=== PATIENT | male | born 1930 | race Caucasian/White ===

== ENCOUNTER 2016-11-17 22:48 | Emergency (ER) | payer MEDICARE, OTHER ==
[~2016-11-17] VITALS: Ht 188 cm; Wt 98.0 kg
[2016-11-17 22:48] VITALS: BP 151/72; PULSE 60; RESP 18; TEMP 97.8; O2SAT 96
[~2016-11-17 22:48] MED LIST: ALLO300T2 PO; ASPI81TA82 PO; AVOD0.5C PO; CO Q100C9 PO; DOCU1CAP39 PO; DONE5TAB14 PO; FLAX10008 PO; LISI10 PO; PROT40TA PO; RIVA20 PO; VITA100018 PO
--- NOTE | 2016-11-17 23:12 | PD ---
HPI Chief Complaint: Complaint Time Seen by Provider: 23:01 Travel History International Travel<30 days: No Contact w/Intl Traveler<30days: No Traveled to known affect area: No History of Present Illness HPI 86-year-old male presents to the emergency department by EMS transport from [facility]. Patient had a urinary catheter inserted this afternoon but continued to have pain after urinary catheter insertion with suprapubic distention. Patient presented with the urinary catheter identified to be expelled outside of the urethra. Patient has had a urinary catheter in place with frequent reinsertion 3 years due to BPH. Patient denies fever chills nausea vomiting chest pain shortness of breath back pain and now after urinary catheter insertion in the emergency department denies any abdominal pain. Patient reports pain was over the bladder location. Patient is in hospice. Patient has history of normal pressure hydrocephalus and is status post [employer] shunt placement as well as atrial fibrillation and is prescribed Xarelto. PFSH Past Medical History Narrative Medical Rectal bleeding normal pressure hydrocephalus atrial fibrillation UTI DPH GERD kidney stone CVA hypertension dyslipidemia dementia COPD gout; [employer] shunt; no tobacco use; nursing notes reviewed Cancer: No Cardiovascular Problems: No Diabetes: No Endocrine: No Genitourinary: Yes (URINARY INCONTINENCE) Hepatitis: No Hiatal Hernia: No Immune Disorder: No Musculoskeletal: No Neurologic: Yes (S/P STROKE, HYDRCEPHALUS, CONFUSION) Psychiatric: No Respiratory: No Thyroid Disease: No Past Surgical History AICD: No Genitourinary Surgery: Yes (LITHOTRIPSY) Joint Replacement: No Pacemaker: No Social History Tobacco Use: No Substance Use: No Allergies-Medications (Allergen,Severity, Reaction): Coded Allergies: No Known Allergies (Unverified , 09/06/14) Reported Meds & Prescriptions Reported Meds & Active Scripts Active Protonix (Pantoprazole Sodium) 40 Mg Tabdr 40 Mg PO DAILY Prinivil 10 mg (Lisinopril) 10 Mg Tab 10 Mg PO DAILY Colace 100 Mg Cap (Docusate Sodium) 100 Mg Cap 100 Mg PO BID Reported Xarelto 20 Mg Tab (Rivaroxaban) 20 Mg Tab 20 Mg PO DAILY Donepezil 5 Mg Tab 5 Mg PO HS Vitamin D (Cholecalciferol) 1,000 Unit Tab 1,000 Unit PO Flaxseed Oil (Flaxseed (Linseed)) 1,000 Mg Cap 1 Cap PO DAILY Co Q 10 (Coenzyme Q10) 100 Mg Cap 100 Mg PO Avodart (Dutasteride) 0.5 Mg Cap 0.5 Mg PO DAILY Aspir-81 (Aspirin) 81 Mg Tab 81 Mg PO DAILY Allopurinol 300 Mg Tab 300 Mg PO DAILY Review of Systems Except as stated in HPI: all other systems reviewed are Neg General / Constitutional: No: Fever, Chills HENT: No: Congestion Cardiovascular: No: Chest Pain or Discomfort Respiratory: No: Shortness of Breath Gastrointestinal: Positive: Abdominal Pain (suprpubic pain), No: Vomiting Genitourinary: Positive: Decreased Urinary Output, No: Dysuria Musculoskeletal: No: Pain Skin: No Rash Neurologic: No: Weakness Psychiatric: No: Anxiety Hematologic/Lymphatic: Positive: Easy Bruising (xarelto) Physical Exam Narrative GENERAL: SKIN: Warm and dry. HEAD: Normocephalic. EYES: No scleral icterus. No injection or drainage. NECK: Supple, trachea midline. No JVD or lymphadenopathy. CARDIOVASCULAR: Regular rate and rhythm without murmurs, gallops, or rubs. RESPIRATORY: Breath sounds equal bilaterally. No accessory muscle use. GASTROINTESTINAL: Abdomen soft, mild residual suprapubic tenderness to palpation after urinary catheter placed to decompress bladder, nondistended. No guarding or rebound. : Uncircumcised male with urinary catheter in place no erythema induration or bleeding at the urethral meatus. MUSCULOSKELETAL: No cyanosis, or edema. BACK: Nontender without obvious deformity. No CVA tenderness. Data Data Orders Urinary Catheter Insert/Apply (11/17/16 23:01) Urinalysis - C+S If Indicated (11/17/16 23:01) Urine Culture (11/17/16 23:00) Labs Laboratory Tests Test 11/17/16 23:00 Urine Color YELLOW Urine Turbidity SLIGHT Urine pH 7.0 Urine Specific [place] 1.005 Urine Protein NEG mg/dL Urine Glucose (UA) NEG mg/dL Urine Ketones NEG mg/dL Urine Occult Blood LARGE Urine Nitrite NEG Urine Bilirubin NEG Urine Leukocyte Esterase TRACE Urine RBC 50-99 /hpf Urine WBC 6-8 /hpf Urine WBC Clumps RARE Urine Squamous Epithelial 0-5 /hpf Cells Microscopic Urinalysis Comment CULTURE INDICATED MDM Medical Decision Making Medical Screen Exam Complete: Yes Emergency Medical Condition: Yes Medical Record Reviewed: Yes Interpretation(s) UA: cath specimen --clumped wbc's, wbcs', culture indicated Differential Diagnosis BPH, urinary retention, urinary catheter replacement Narrative Course Urinary catheter insertion ordered; 1300 MLS urine output; catheter clamped; urinalysis specimen sent Urinalysis consistent with pyuria patient with white blood cells complete blood cells leukocyte Estrace culture indicated patient given prescription for doxycycline and first dose administered in the emergency department. Patient with good relief of suprapubic pressure discomfort after bladder decompression by urinary catheter insertion. Patient is stable for outpatient management. Diagnosis Primary Impression: Urinary retention Referrals: Primary Care Physician call for appointment Urologist call for appointment Patient Instructions: General Instructions Additional Instructions: Follow-up with primary care provider and urologist as scheduled Return to the emergency department for a concerns or change in condition Increase fluid hydration Med/Other Pt SpecificInfo: Prescription(s) given, No Change to Meds Scripts Doxycycline Hyclate 100 Mg [id number] Mg PO BID 7 Days Ref 0 Prov:Nichol Liz MD 11/17/16 Disposition: 01 DISCHARGE HOME Condition: Stable Nichol Liz MD Nov 17, 2016 23:11
[2016-11-17 23:19] LABS: BLOOD, URINE LARGE (NEG); GLUCOSE,URINE NEG (NEG); KETONE, URINE NEG (NEG); NITRITE,URINE NEG (NEG)
[2016-11-17 23:25] LABS: URINE COLOR YELLOW (YELLW/STRAW)
[2016-11-17 23:27] LABS: SQUAMOUS EPITHELIAL CELL URINE 0-5 /hpf (0-5)
[2016-11-17 23:28] LABS: COMMENT (UR) CULTURE INDICATED; CULTURE IF INDICATED CULTURE INDICATED
[2016-11-17] MEDS ORDERED: DOXY100C PO (23:35)
[2016-11-17] MEDS ORDERED: DOXYCYCLINE HYCLATE 100 MG CAP PO ONE (23:45)
[2016-11-18] MEDS ORDERED: COEN200C4 (00:01)
[2016-11-18] MEDS ORDERED: TRAZ100T4 PO (00:01)
[2016-11-18] MEDS ORDERED: ALLO300T2 PO (00:01)
[2016-11-18] MEDS ORDERED: DONE5TAB7 PO (00:01)
[2016-11-18] MEDS ORDERED: PROT40TA PO (00:01)
[2016-11-18] MEDS ORDERED: VITA100032 (00:01)
[2016-11-18] MEDS ORDERED: AMLO5TAB2 PO (00:01)
[2016-11-18] MEDS ORDERED: ASPI81CH CHEW (00:01)
[2016-11-18] MEDS ORDERED: PROS5TAB PO (00:01)
[2016-11-18] MEDS ORDERED: LISI40TA PO (00:01)
[2016-11-18] MEDS ORDERED: AMIO200T PO (00:01)
[2016-11-18 01:11] VITALS: BP 147/67
== END 2016-11-18 01:20 | disposition home or self-care (01) ==
LOC: PHED 22:48
DX: R33.9 Retention of urine, unspecified (principal); Z98.2 Presence of cerebrospinal fluid drainage device; I48.91 Unspecified atrial fibrillation; G91.2 (Idiopathic) normal pressure hydrocephalus; K21.9 Gastro-esophageal reflux disease without esophagitis; J44.9 Chronic obstructive pulmonary disease, unspecified; I10 Essential (primary) hypertension; E78.5 Hyperlipidemia, unspecified; Z86.73 Personal history of transient ischemic attack (TIA), and cerebral infarction without residual deficits; N40.0 Benign prostatic hyperplasia without lower urinary tract symptoms
CPT/HCPCS: 51702; 81001; 87086